=== PATIENT | female | born 1995 | race Caucasian/White ===

== ENCOUNTER 2016-10-12 13:30 | Outpatient (CLI) | payer OTHER ==
[~2016-10-12] VITALS: Ht 154.9 cm; Wt 65.9 kg
[~2016-10-12 13:30] MED LIST: DOXY1TAB3 PO; [UNRECOGNIZED DRUG - OTHER]
[2016-10-12 13:50] LABS: DAU SCREEN DISCLAIMER
[2016-10-12 14:18] VITALS: BP 125/69
== END 2016-10-12 14:35 | disposition home or self-care (01) ==
LOC: LDOP 13:30
PROVIDERS: ATTEND Student in an Organized Health Care Education/Training Program
DX: O26.892 Other specified pregnancy related conditions, second trimester (principal); R10.9 Unspecified abdominal pain; O21.9 Vomiting of pregnancy, unspecified; Z3A.25 25 weeks gestation of pregnancy
CPT/HCPCS: 59025; 80307; 81001; 87086; 99211; G0463

== ENCOUNTER 2016-12-06 07:36 | Inpatient (IN) | payer OTHER ==
[~2016-12-06] VITALS: Ht 154.9 cm; Wt 66.3 kg
[2016-12-06 07:58] VITALS: BP 127/60
[2016-12-06] MEDS ORDERED: LACTATED RINGERS 1,000 ML IVBOLUS ONE (08:30)
[2016-12-06] MEDS: LACTATED RINGERS 1,000 ML IV SCH ×2 (09:46→18:20)
[2016-12-06] MEDS ORDERED: BETAMETHASONE 6 MG/ML, 5ML IM ONE (11:22)
[2016-12-06] MEDS: BETAMETHASONE 6 MG/ML, 5ML IM SCH (12:00)
[2016-12-06 12:15] LABS: PATH.CAST-FLAG NOT PRESENT; SPERM-FLAG NOT PRESENT; SRC-FLAG NOT PRESENT; XTAL-FLAG NOT PRESENT; YLC-FLAG NOT PRESENT
[2016-12-06] MEDS ORDERED: MAGNESIUM SULF. PMX 20GM/500ML 500 ML IV ONE (16:07)
[2016-12-06] MEDS ORDERED: MAGNESIUM SULFATE PMX 2GM/50ML 50 ML ONE (16:07)
[2016-12-06] MEDS ORDERED: MAGNESIUM SULF. PMX 20GM/500ML 500 ML IV SCH (16:15)
[2016-12-06] MEDS ORDERED: MAGNESIUM SULFATE PMX 2GM/50ML 50 ML IVPB ONE ×2 (16:30→18:00)
[2016-12-06] MEDS ORDERED: CALCIUM GLUCONATE 4.6 MEQ/10 ML IV PRN (16:30)
[2016-12-06] MEDS: metroNIDAZOLE 500 MG TABLET PO SCH ×2 (16:30→20:59)
[2016-12-07] MEDS: LACTATED RINGERS 1,000 ML IV SCH (03:22)
[2016-12-07] MEDS ORDERED: ACETAMINOPHEN 325 MG TABLET ONE (07:47)
[2016-12-07] MEDS ORDERED: ACETAMINOPHEN 650 MG/20.3 ML UDC PO PRN (08:00)
[2016-12-07] MEDS ORDERED: ACETAMINOPHEN 325 MG TABLET PO PRN (08:00)
[2016-12-07] MEDS: metroNIDAZOLE 500 MG TABLET PO SCH ×2 (09:15→21:09)
[2016-12-07] MEDS ORDERED: DOXY1TAB3 PO (10:29)
[2016-12-07] MEDS ORDERED: DICLEGIS PO PRN (10:30)
[2016-12-07] MEDS: BETAMETHASONE 6 MG/ML, 5ML IM SCH (11:48)
[2016-12-07] MEDS ORDERED: DICLEGIS PO SCH (21:00)
[2016-12-07] MEDS ORDERED: DOCUSATE 100 MG CAPSULE ONE (21:06)
[2016-12-07] MEDS: PRENATAL VIT/IRON/FA 1 EACH TABLET PO SCH (21:09)
[2016-12-07] MEDS: DOCUSATE 100 MG CAPSULE PO SCH (21:09)
[2016-12-08 08:20] VITALS: BP 128/79
[2016-12-08] MEDS ORDERED: DOCUSATE 100 MG CAPSULE ONE (08:31)
[2016-12-08] MEDS ORDERED: PRENATAL VIT/IRON/FA 1 EACH TABLET ONE (08:31)
[2016-12-08] MEDS: DOCUSATE 100 MG CAPSULE PO SCH (08:33)
[2016-12-08] MEDS: metroNIDAZOLE 500 MG TABLET PO SCH (08:33)
[2016-12-08] MEDS: PRENATAL VIT/IRON/FA 1 EACH TABLET PO SCH (08:33)
[2016-12-08] MEDS ORDERED: METR500T PO (08:50)
== END 2016-12-08 09:15 | disposition home or self-care (01) | DRG 780 ==
LOC: LDOP 07:36 → OBSVTOIN 09:29 → LDIP 09:29
PROVIDERS: ADMIT Student in an Organized Health Care Education/Training Program; ATTEND Student in an Organized Health Care Education/Training Program
DX: O47.03 False labor before 37 completed weeks of gestation, third trimester (principal); O23.593 Infection of other part of genital tract in pregnancy, third trimester; O76 Abnormality in fetal heart rate and rhythm complicating labor and delivery; Z3A.32 32 weeks gestation of pregnancy; Z88.8 Allergy status to other drugs, medicaments and biological substances; B96.89 Other specified bacterial agents as the cause of diseases classified elsewhere
CPT/HCPCS: 36415; 76815; 81001; 83735; 85025; 86850; 86900; 87081; 87210; 87808; J0702; J3475; J7120

== ENCOUNTER 2017-01-10 16:16 | Outpatient (CLI) | payer OTHER ==
[~2017-01-10] VITALS: Ht 154.9 cm; Wt 70.5 kg
[~2017-01-10 16:16] MED LIST changes: +METR500T PO
[2017-01-10 16:30] VITALS: BP 120/72
== END 2017-01-10 18:20 | disposition home or self-care (01) ==
LOC: LDOP 16:16
PROVIDERS: ATTEND Student in an Organized Health Care Education/Training Program
DX: O36.8130 Decreased fetal movements, third trimester, not applicable or unspecified (principal); O42.913 Preterm premature rupture of membranes, unspecified as to length of time between rupture and onset of labor, third trimester; O99.343 Other mental disorders complicating pregnancy, third trimester; F32.9 Major depressive disorder, single episode, unspecified; Z3A.37 37 weeks gestation of pregnancy
CPT/HCPCS: 59025; 89060; 99211; G0463; Q0114

== ENCOUNTER 2017-01-11 11:07 | Inpatient (IN) | payer OTHER ==
[~2017-01-11] VITALS: Ht 154.9 cm; Wt 70.4 kg
[2017-01-11] MEDS ORDERED: OXYTOCIN 30U/ 0.9% NaCL 500ML 500 ML IV ONE (11:43)
[2017-01-11 11:46] VITALS: BP 150/85
[2017-01-11] MEDS ORDERED: ONDANSETRON 2MG/ML, 2ML IVPush PRN (12:00)
[2017-01-11] MEDS ORDERED: FENTANYL PF 100 MCG/2ML IVPush PRN (12:00)
[2017-01-11 12:35] LABS: ASPARTATE AMINO TRANSFERASE 8 U/L (15-37); BLOOD UREA NITROGEN 11 mg/dL (7-18)
[2017-01-11] MEDS ORDERED: NEWBORN KIT ONE (12:45)
[2017-01-11] MEDS ORDERED: OXYTOCIN 30U/ 0.9% NaCL 500ML 500 ML ONE ×2 (12:45→14:18)
[2017-01-11] MEDS ORDERED: MISOPROSTOL 200 MCG TABLET ONE (12:45)
[2017-01-11] MEDS ORDERED: LIDOCAINE 1%, 20ML ONE ×2 (12:45→14:18)
[2017-01-11] MEDS: LACTATED RINGERS 1,000 ML IV SCH ×2 (14:00→22:23)
[2017-01-11] MEDS ORDERED: IBUPROFEN 600 MG TABLET ONE (14:54)
[2017-01-11] MEDS ORDERED: HYDROcodone/APAP 5/325 TABLET ONE (14:54)
[2017-01-11 16:44] VITALS: BP 124/73
[2017-01-11] MEDS: OXYTOCIN 30U/ 0.9% NaCL 500ML 500 ML IV SCH (16:55)
[2017-01-11] MEDS ORDERED: DIPH,PERTUSS(ACELL),TET VAC/PF NC IM-VACC PRN (17:00)
[2017-01-11] MEDS ORDERED: MAGNESIUM HYDROXIDE 8%, 30ML UDC PO PRN (17:00)
[2017-01-11] MEDS ORDERED: ACETAMINOPHEN 325 MG TABLET PO PRN ×2 (17:00)
[2017-01-11] MEDS ORDERED: MEASLES,MUMPS&RUBELLA VACC/PF 0.5 ML SQ-VACC PRN (17:00)
[2017-01-11] MEDS ORDERED: CARBOPROST TROMETHAMINE 250 MCG/ML, 1ML IM PRN (17:00)
[2017-01-11] MEDS ORDERED: ONDANSETRON 2MG/ML, 2ML IV PRN (17:00)
[2017-01-11] MEDS ORDERED: METHYLERGONOVINE 0.2 MG/ML IM PRN (17:00)
[2017-01-11] MEDS ORDERED: GLYCERIN ADULT SUPP PR PRN (17:00)
[2017-01-11] MEDS ORDERED: METOCLOPRAMIDE 5 MG/ML, 2ML IV PRN (17:00)
[2017-01-11] MEDS ORDERED: MISOPROSTOL 200 MCG TABLET PR PRN (17:00)
[2017-01-11] MEDS ORDERED: HYDROcodone/APAP 10/325 MG TABLET PO PRN (17:00)
[2017-01-11] MEDS ORDERED: RHOGAM FROM BLOOD BANK 1 NOTE EA IM/IV ONE (17:00)
[2017-01-11] MEDS ORDERED: BISACODYL 10 MG SUPP PR PRN (17:00)
[2017-01-11 19:55] VITALS: BP 131/86
[2017-01-11] MEDS: DOCUSATE 100 MG CAPSULE PO PRN (21:29)
[2017-01-12 00:10] VITALS: BP 126/82
[2017-01-12] MEDS: HYDROcodone/APAP 5/325 TABLET PO PRN ×3 (00:18→09:08)
[2017-01-12] MEDS: OXYTOCIN 30U/ 0.9% NaCL 500ML 500 ML IV SCH ×2 (02:55→12:55)
[2017-01-12 04:40] VITALS: BP 133/83
[2017-01-12] MEDS ORDERED: HYDR-3240 PO (05:50)
[2017-01-12] MEDS ORDERED: IBUP-1222 PO (05:58)
[2017-01-12] MEDS ORDERED: DOCU-30 PO (05:59)
[2017-01-12] MEDS: LACTATED RINGERS 1,000 ML IV SCH ×2 (06:23→14:23)
[2017-01-12 08:00] VITALS: BP 138/69
[2017-01-12] MEDS: DOCUSATE 100 MG CAPSULE PO PRN (09:08)
[2017-01-12] MEDS ORDERED: IBUPROFEN 600 MG TABLET PO PRN (11:00)
[2017-01-12 12:00] VITALS: BP 126/78
== END 2017-01-12 17:45 | disposition home or self-care (01) | DRG 775 ==
LOC: LDOP 11:07 → LDIP 11:43 → 2NW 15:48
PROVIDERS: ADMIT Student in an Organized Health Care Education/Training Program; ATTEND Student in an Organized Health Care Education/Training Program
PROC: 10E0XZZ Delivery of Products of Conception, External Approach (ICD-10-PCS; principal; 2017-01-11)
PROC: 0HQ9XZZ Repair Perineum Skin, External Approach (ICD-10-PCS; 2017-01-11)
DX: O69.81X0 Labor and delivery complicated by cord around neck, without compression, not applicable or unspecified (principal); Z37.0 Single live birth; Z3A.38 38 weeks gestation of pregnancy; O70.0 First degree perineal laceration during delivery; O99.344 Other mental disorders complicating childbirth; F32.9 Major depressive disorder, single episode, unspecified
CPT/HCPCS: 36415; 80053; 81001; 84550; 85025; 86850; 86900; J2590; J7120